=== PATIENT | female | born 2000 | race African-American/Black ===

== ENCOUNTER 2021-02-13 23:22 | Emergency (ER) | payer MEDICAID ==
[~2021-02-13] VITALS: Ht 165.1 cm; Wt 93.6 kg
[2021-02-13] MEDS ORDERED: SERT-162 PO (23:28)
[2021-02-14 00:10] LABS: BASOPHILS % (AUTO) 0.5 % (0.0-2.0); HEMATOCRIT 38.2 % (36-46); HEMOGLOBIN 12.3 g/dL (12.0-16.0); LYMPHOCYTES # (AUTO) 2.7 K/uL (1.0-4.8); LYMPHOCYTES % (AUTO) 20.6 % (22.0-44.0); MEAN CORPUSCULAR HGB CONC 32.4 G/dL (31.0-37.0); MEAN CORPUSCULAR VOLUME 83 fL (80-100); MONOCYTES % (AUTO) 7.6 % (2.0-9.0); NEUTROPHILS # (AUTO) 9.2 K/uL (1.8-7.7); NEUTROPHILS % (AUTO) 70.3 % (40.0-70.0); PLATELET COUNT (AUTO) 348 K/uL (150-450); RED BLOOD CELL COUNT(AUTO) 4.58 MIL/uL (4.00-5.20); RED CELL DISTRIBUTION WIDTH 13.5 % (11.5-14.5)
[2021-02-14 00:11] LABS: ANION GAP 8 mmol/L (8-16); CALCIUM, TOTAL 9.3 mg/dL (8.8-10.5); CARBON DIOXIDE 29 mmol/L (22-29); CHLORIDE 104 mmol/L (98-107); CREATININE 0.97 mg/dL (0.60-1.30); GLOMERULAR FILTR. RATE CALC > 60 mL/min (>60); GLUCOSE,RANDOM 92 mg/dL (70-110); POTASSIUM 3.9 mmol/L (3.5-5.1); SODIUM SERUM 141 mmol/L (136-145); UREA NITROGEN, BLOOD 9 mg/dL (7-18)
[2021-02-14] MEDS ORDERED: CAPSAICIN 0.075% 60 GM CREAM TP ONE (00:15)
[2021-02-14] MEDS ORDERED: FAMOTIDINE 20 MG TABLET PO ONE (00:15)
[2021-02-14] MEDS ORDERED: ONDANSETRON HCL 4 MG TABLET PO ONE (00:15)
[2021-02-14 00:18] LABS: ALANINE AMINOTRANSFERASE 15 U/L (12-78); ALBUMIN 4.2 g/dL (3.4-5.0); ALKALINE PHOSPHATASE 90 U/L (46-116); ASPARTATE AMINOTRANSFERASE 8 U/L (15-37); BILIRUBIN,TOTAL 0.8 mg/dL (0.1-1.0); LIPASE 68 U/L (73-393); TOTAL PROTEIN, SERUM 8.4 g/dL (6.4-8.2)
[2021-02-14 00:23] LABS: HCG,QUANTITATIVE < 1 mIU/mL (0-6)
[2021-02-14 00:37] LABS: APPEARANCE,URINE CLOUDY (CLEAR); BILIRUBIN,URINE NEGATIVE (NEGATIVE); GLUCOSE, URINE (UA) NEGATIVE (NEGATIVE); KETONES,URINE NEGATIVE (NEGATIVE); LEUKOCYTE ESTERASE ,URINE MODERATE (NEGATIVE); NITRATE,URINE POSITIVE (NEGATIVE); OCCULT BLOOD,URINE LARGE (NEGATIVE); PROTEIN,URINE TRACE (NEGATIVE); UROBILINOGEN,URINE 0.2 mg/dL (<=1.0)
[2021-02-14 00:46] LABS: BACTERIA,URINE Many /HPF (None Seen); RBC,URINE 26-50 /HPF (0-2); WBC,URINE 51-100 /HPF (0-5)
[2021-02-14 02:32] VITALS: BP 119/76
== END 2021-02-14 02:20 | disposition home or self-care (01) ==
LOC: EMS 23:27
DX: R10.13 Epigastric pain (principal); R11.0 Nausea; R10.11 Right upper quadrant pain; F41.9 Anxiety disorder, unspecified; F12.90 Cannabis use, unspecified, uncomplicated; F17.200 Nicotine dependence, unspecified, uncomplicated
CPT/HCPCS: 36415; 76705; 80053; 81001; 83690; 84702; 85025; 87077; 87086; 99284; Q0162

== ENCOUNTER 2023-04-18 20:49 | Emergency (ER) | payer MEDICAID, SELFPAY ==
[~2023-04-18] VITALS: Ht 170.2 cm; Wt 77.3 kg
[~2023-04-18 20:49] MED LIST: SERT-162 PO
[2023-04-18 20:59] VITALS: BP 110/87; PULSE 120; RESP 20; TEMP 102.1
[2023-04-18 21:23] LABS: COVID AG,FIA SOURCE NASAL SWAB
[2023-04-18] MEDS ORDERED: ACETAMINOPHEN 500 MG TABLET PO ONE (22:00)
[2023-04-18 22:27] LABS: INFLUENZA TYPE A NEGATIVE FOR TYPE A (NEGATIVE); INFLUENZA TYPE B NEGATIVE FOR TYPE B (NEGATIVE); SARS-COV2 (COVID) ANTIGEN,FIA Negative (Negative)
[2023-04-18] MEDS ORDERED: AZIT250T9 PO (22:59)
[2023-04-18] MEDS ORDERED: BENZ-227 PO (22:59)
== END 2023-04-19 00:43 | disposition home or self-care (01) ==
LOC: EMS 20:53
DX: J40 Bronchitis, not specified as acute or chronic (principal); J06.9 Acute upper respiratory infection, unspecified; F41.9 Anxiety disorder, unspecified; F12.90 Cannabis use, unspecified, uncomplicated; Z20.822 Contact with and (suspected) exposure to COVID-19
CPT/HCPCS: 71045; 87804; 99284

== ENCOUNTER 2023-09-10 23:01 | Emergency (ER) | payer MEDICAID, OTHER ==
[~2023-09-10] VITALS: Ht 167.6 cm; Wt 75.0 kg
[~2023-09-10 23:01] MED LIST changes: +BENZ-227 PO
[2023-09-10 23:14] VITALS: TEMP 99.2
[2023-09-11 01:42] VITALS: BP 115/84; PULSE 96; RESP 18
[2023-09-11] MEDS ORDERED: IBUP-1493 PO (02:16)
[2023-09-11] MEDS ORDERED: OXYC-38 PO (02:16)
[2023-09-11] MEDS ORDERED: AMOX500C2 PO (02:16)
== END 2023-09-11 02:38 | disposition home or self-care (01) ==
LOC: EMS 23:01
DX: K08.89 Other specified disorders of teeth and supporting structures (principal); F12.90 Cannabis use, unspecified, uncomplicated
CPT/HCPCS: 99283; Z7502

== ENCOUNTER 2023-09-17 14:29 | Inpatient (IN) | payer MEDICAID, OTHER ==
[~2023-09-17] VITALS: Ht 167.6 cm; Wt 73.0 kg
[~2023-09-17 14:29] MED LIST changes: +AMOX500C2 PO; +IBUP-1493 PO; +OXYC-38 PO
[2023-09-17 15:19] LABS: BASOPHILS % (AUTO) 0.7 % (0.0-2.0); EOSINOPHILS % (AUTO) 2.6 % (1.0-6.0); HEMATOCRIT 39.3 % (36-46); HEMOGLOBIN 12.7 g/dL (12.0-16.0); LYMPHOCYTES # (AUTO) 2.9 K/uL (1.0-4.8); LYMPHOCYTES % (AUTO) 21.7 % (22.0-44.0); MEAN CORPUSCULAR HEMOGLOBIN 27.3 pg (26.0-34.0); MEAN CORPUSCULAR HGB CONC 32.5 G/dL (31.0-37.0); MEAN CORPUSCULAR VOLUME 84 fL (80-100); MONOCYTES # (AUTO) 0.9 K/uL (0.1-1.0); MONOCYTES % (AUTO) 6.9 % (2.0-9.0); NEUTROPHILS # (AUTO) 9.1 K/uL (1.8-7.7); NEUTROPHILS % (AUTO) 68.1 % (40.0-70.0); PLATELET COUNT (AUTO) 382 K/uL (150-450); RED BLOOD CELL COUNT(AUTO) 4.68 MIL/uL (4.00-5.20); RED CELL DISTRIBUTION WIDTH 13.6 % (11.5-14.5); WHITE BLOOD COUNT (AUTO) 13.4 K/uL (4.5-11.0)
[2023-09-17 15:26] LABS: ANION GAP 5 mmol/L (8-16); CALCIUM, TOTAL 9.8 mg/dL (8.8-10.5); CARBON DIOXIDE 31 mmol/L (22-29); CHLORIDE 104 mmol/L (98-107); CREATININE 0.91 mg/dL (0.60-1.30); GLOMERULAR FILTR. RATE CALC > 60 mL/min (>60); GLUCOSE,RANDOM 71 mg/dL (70-110); POTASSIUM 3.9 mmol/L (3.5-5.1); SODIUM SERUM 140 mmol/L (136-145); UREA NITROGEN, BLOOD 6 mg/dL (7-18)
[2023-09-17 15:32] LABS: ALCOHOL, BLOOD (SERUM) < 3 mg/dL (0-10)
[2023-09-17 16:19] LABS: COVID AG,FIA SOURCE NASAL SWAB
[2023-09-17 16:20] LABS: PH,URINE DRUG SCREEN 6.5 (5.0-8.0)
[2023-09-17 16:27] LABS: ALCOHOL, URINE DRUG SCREEN NEGATIVE (NEGATIVE); AMPHET/METH SCREEN,URINE NEGATIVE (NEGATIVE); BARBITURATE SCREEN, URINE NEGATIVE (NEGATIVE); BENZODIAZEPINES SCREEN,URINE NEGATIVE (NEGATIVE); CANNABINOID SCREEN,URINE POSITIVE (NEGATIVE); COCAINE SCREEN,URINE POSITIVE (NEGATIVE); METHADONE SCREEN, URINE NEGATIVE (NEGATIVE); OPIATE SCREEN,URINE POSITIVE (NEGATIVE); PHENCYCLIDINE SCREEN,URINE NEGATIVE (NEGATIVE)
[2023-09-17 16:58] LABS: SARS-COV2 (COVID) ANTIGEN,FIA Negative (Negative)
[2023-09-17] MEDS: LORazepam 1 MG TABLET PO ONE (17:55)
[2023-09-17] MEDS ORDERED: ZOLPIDEM TARTRATE 10 MG TABLET PO PRN (20:00)
[2023-09-17] MEDS ORDERED: HALOPERIDOL 5 MG TABLET PO PRN (20:00)
[2023-09-17 21:09] LABS: APPEARANCE,URINE TURBID (CLEAR); BILIRUBIN,URINE NEGATIVE (NEGATIVE); GLUCOSE, URINE (UA) NEGATIVE (NEGATIVE); KETONES,URINE NEGATIVE (NEGATIVE); LEUKOCYTE ESTERASE ,URINE LARGE (NEGATIVE); NITRATE,URINE NEGATIVE (NEGATIVE); OCCULT BLOOD,URINE NEGATIVE (NEGATIVE); PH,URINE 6.5 (5.0-8.0); PROTEIN,URINE 30-70 mg/dL (NEGATIVE); SPECIFIC GRAVITIY, URINE 1.028 (1.003-1.030)
[2023-09-17 21:11] LABS: COLOR,URINE DARK YELLOW (YELLOW)
[2023-09-17 21:20] LABS: AMORPHOUS SEDIMENT,UR Many /LPF (None Seen); BACTERIA,URINE Few /HPF (None Seen); RBC,URINE None Seen /HPF (0-2); SQUAMOUS EPITHELIAL CELL,UR Moderate /LPF (None Seen)
[2023-09-18 00:02] VITALS: BP 153/75; PULSE 84; RESP 20; TEMP 97.8; O2SAT 99
[2023-09-18] MEDS ORDERED: ACETAMINOPHEN 325 MG TABLET PO PRN ×2 (08:30→09:30)
[2023-09-18] MEDS ORDERED: LOPERAMIDE HCL 2 MG CAPSULE PO PRN ×2 (08:30→09:30)
[2023-09-18] MEDS ORDERED: MAGNESIUM HYDROXIDE SUSPENSION 30 ML UDCUP PO PRN ×2 (08:30→09:30)
[2023-09-18] MEDS ORDERED: HydrOXYzine PAMOATE 50 MG CAPSULE PO PRN (08:30)
[2023-09-18] MEDS ORDERED: GuaiFENesin/D-METHORPHAN [SUGAR-FREE] 200-20MG/10 ML SYRUP UDCUP PO PRN (08:30)
[2023-09-18] MEDS ORDERED: MAG HYDROX/ALUMINUM HYD/SIMETH ES 30 ML SUSPENSION UDCUP PO PRN ×2 (08:30→09:30)
[2023-09-18] MEDS ORDERED: TUBERCULIN, PURIFIED PROTEIN DERIVATIVE 5 TU/0.1 ML SYRINGE ID ONE (08:30)
[2023-09-18] MEDS ORDERED: PROMETHAZINE HCL 25 MG TABLET PO PRN (08:30)
[2023-09-18] MEDS ORDERED: BACITRACIN 28 GM OINTMENT TP PRN (09:30)
[2023-09-18] MEDS ORDERED: OMEPRAZOLE 20 MG CAPSULE PO PRN (09:30)
[2023-09-18] MEDS ORDERED: CloNIDine HCL 0.1 MG TABLET PO PRN (09:30)
[2023-09-18] MEDS ORDERED: PETROLATUM,WHITE 28 GM JELLY TP PRN (09:30)
[2023-09-18] MEDS ORDERED: ONDANSETRON HCL 4 MG TABLET PO PRN (09:30)
[2023-09-18] MEDS ORDERED: DOCUSATE SODIUM 100 MG CAPSULE PO PRN (09:30)
[2023-09-18] MEDS ORDERED: ALBUTEROL SULFATE HFA 90 MCG/PUFF 8 GM INHALER IH PRN (09:30)
[2023-09-18] MEDS ORDERED: BENZOCAINE/MENTHOL LOZENGE PO PRN (09:30)
[2023-09-18] MEDS: OMEGA-3/DHA/EPA/FISH OIL 1,000 MG CAPSULE PO SCH (11:57)
[2023-09-18] MEDS: NALTREXONE HCL 50 MG TABLET PO SCH (11:57)
[2023-09-18] MEDS: FLUoxetine HCL 20 MG CAPSULE PO SCH (11:59)
[2023-09-18] MEDS: CEPHALEXIN MONOHYDRATE 500 MG CAPSULE PO SCH (11:59)
[2023-09-18] MEDS: MULTIVITAMINS WITH MINERALS, THERAPEUTIC TABLET PO SCH (11:59)
[2023-09-18] MEDS: THIAMINE 100 MG TABLET PO SCH (11:59)
[2023-09-18] MEDS: FOLIC ACID 1 MG TABLET PO SCH (12:00)
[2023-09-18] MEDS: LORazepam 2 MG TABLET PO PRN (14:20)
[2023-09-18] MEDS: FLUoxetine HCL 20 MG CAPSULE PO ONE (14:21)
[2023-09-18 17:21] VITALS: BP 127/61; PULSE 60; RESP 18; TEMP 98.3; O2SAT 100
[2023-09-18] MEDS: IBUPROFEN 600 MG TABLET PO PRN (19:53)
[2023-09-18 19:54] VITALS: BP 115/67; PULSE 97; RESP 18; TEMP 98.1; O2SAT 97
[2023-09-18] MEDS: MELATONIN 5 MG TABLET PO SCH (20:44)
[2023-09-18 20:53] VITALS: RESP 18
[2023-09-19 08:00] LABS: HEMOGLOBIN A1C 5.6 % (3.8-5.6)
[2023-09-19 08:19] LABS: CHOL/HDL RATIO 3.1 (3.9-5.7)
[2023-09-19 08:40] VITALS: BP 108/61; PULSE 105; RESP 18; TEMP 97.3; O2SAT 98
[2023-09-19] MEDS ORDERED: FLUO-418 PO (18:37)
[2023-09-19] MEDS ORDERED: MELA5TAB40 PO (18:37)
[2023-09-19] MEDS ORDERED: OMEG-135 PO (18:37)
[2023-09-19] MEDS ORDERED: NALT50TA33 PO (18:37)
[2023-09-19 20:30] VITALS: BP 118/76; PULSE 86; RESP 18; TEMP 98.7; O2SAT 97
[2023-09-20 09:35] VITALS: BP 121/82; PULSE 96; RESP 19; TEMP 98.8; O2SAT 97
[2023-09-20] MEDS ORDERED: CEPH-558 PO (09:59)
== END 2023-09-20 11:59 | disposition home or self-care (01) | DRG 751 ==
LOC: EMS 14:29 → UNDOADMIN 21:53 → 3EI 21:53
PROVIDERS: ADMIT Psychiatry & Neurology Psychiatry; ATTEND Psychiatry & Neurology Psychiatry
DX: F33.2 Major depressive disorder, recurrent severe without psychotic features (principal); R45.851 Suicidal ideations; F41.9 Anxiety disorder, unspecified; G47.00 Insomnia, unspecified; F12.20 Cannabis dependence, uncomplicated; Z20.822 Contact with and (suspected) exposure to COVID-19; K59.00 Constipation, unspecified; N39.0 Urinary tract infection, site not specified; Z79.899 Other long term (current) drug therapy
CPT/HCPCS: 80048; 80061; 80307; 81001; 83036; 84703; 85025; 86592; 87086; 87186; 99285; G0480; Q9967

== ENCOUNTER 2024-12-13 23:23 | Emergency (ER) | payer MEDICAID, OTHER ==
[~2024-12-13] VITALS: Ht 170.2 cm; Wt 100.0 kg
[~2024-12-13 23:23] MED LIST changes: -AMOX500C2 PO; -BENZ-227 PO; +CEPH-558 PO; +FLUO-418 PO; -IBUP-1493 PO; +MELA5TAB40 PO; +NALT50TA33 PO; +OMEG-135 PO; -OXYC-38 PO; -SERT-162 PO
[2024-12-13 23:36] VITALS: BP 129/102; PULSE 124; RESP 16; TEMP 98.4; O2SAT 98
== END 2024-12-14 01:00 | disposition left against medical advice (07) ==
LOC: EMS 23:24
DX: M25.531 Pain in right wrist (principal); Z53.21 Procedure and treatment not carried out due to patient leaving prior to being seen by health care provider; W19.XXXA Unspecified fall, initial encounter; Y93.89 Activity, other specified; Y92.89 Other specified places as the place of occurrence of the external cause; Y99.8 Other external cause status
CPT/HCPCS: 73110-TC